=== PATIENT | female | born 1935 | race Two or more races ===

== ENCOUNTER 2017-06-10 16:55 | Inpatient (IN) | payer OTHER ==
[~2017-06-10] VITALS: Ht 152.4 cm; Wt 51.2 kg
[2017-06-10 18:05] LABS: BASOPHIL % 0 % (0-2); PLATELET COUNT 124 x10^3mcL (130-400); RED CELL DISTRIBUTION WIDTH 16.4 % (11.5-14.5)
[2017-06-10 18:06] LABS: CALCIUM 8.8 mg/dL (8.5-10.1); CARBON DIOXIDE 26.8 mmol/L (21-32); CHLORIDE SERUM 101 mmol/L (98-107); CREATININE SERUM 0.9 mg/dL (0.6-1.0); GLUCOSE SERUM 172 mg/dL (74-106); POTASSIUM SERUM 3.7 mmol/L (3.5-5.1); SODIUM SERUM 137 mmol/L (136-145)
[2017-06-10 18:10] LABS: ALBUMIN 4.1 g/dL (3.4-5.0); ALKALINE PHOSPHATASE 103 U/L (46-116); ALT/SGPT 39 U/L (14-59); AST/SGOT 44 U/L (15-37); BILIRUBIN TOTAL 0.6 mg/dL (0.20-1.00)
[2017-06-10 18:11] LABS: TOTAL PROTEIN, SERUM 8.6 g/dL (6.4-8.2)
[2017-06-10] MEDS ORDERED: TOPROL XL50 MG PO (19:17)
[2017-06-10] MEDS ORDERED: LIPI10 PO (19:17)
[2017-06-10] MEDS ORDERED: LOSARTAN POTASS25 M1 PO (19:17)
[2017-06-10] MEDS ORDERED: ELIQUIS2.5 MG PO (19:18)
[2017-06-10 20:26] VITALS: BP 146/78
[2017-06-10 22:14] LABS: MAGNESIUM 1.8 mg/dL (1.8-2.4); PHOSPHOROUS 3.7 mg/dL (2.5-4.9)
[2017-06-10 22:15] LABS: CHOLESTEROL/HDL RATIO 2.5
[2017-06-10 22:16] LABS: FREE T4 1.2 ng/dL (0.76-1.46); FREE THYROXINE INDEX 3.2 ug/dL (1.4-4.5); T4(THYROXINE) 9.3 ug/dL (4.7-13.3)
[2017-06-10 22:19] LABS: T3 TOTAL 0.87 ng/mL
[2017-06-10 23:52] VITALS: BP 146/78
[2017-06-11 01:06] LABS: UA SPECIFIC GRAVITY >=1.030 (1.005-1.035); microscopic required? YES; urine erythrocyte NEGATIVE (NEGATIVE)
[2017-06-11 01:14] LABS: AMPHETAMINE QUAL UR NONE DETECTED (NEG <=1000)
[2017-06-11 04:58] VITALS: BP 151/92
[2017-06-11 06:59] LABS: BASOPHIL % 0.3 % (0-2)
[2017-06-11 07:07] LABS: CALCIUM 8.9 mg/dL (8.5-10.1); CARBON DIOXIDE 24.5 mmol/L (21-32); CHLORIDE SERUM 102 mmol/L (98-107); GLUCOSE SERUM 125 mg/dL (74-106); POTASSIUM SERUM 3.6 mmol/L (3.5-5.1); SODIUM SERUM 138 mmol/L (136-145)
[2017-06-11 07:16] LABS: PLATELET COUNT 123 x10^3mcL (130-400); RED CELL DISTRIBUTION WIDTH 16.2 % (11.5-14.5)
[2017-06-11 09:55] VITALS: BP 129/75
[2017-06-11 13:13] VITALS: BP 128/85
[2017-06-11 17:30] VITALS: BP 118/94
[2017-06-11 21:12] VITALS: BP 143/78
[2017-06-12 05:11] VITALS: BP 148/87
[2017-06-12 08:02] LABS: PLATELET COUNT 107 x10^3mcL (130-400); RED CELL DISTRIBUTION WIDTH 15.1 % (11.5-14.5)
[2017-06-12 08:21] LABS: CALCIUM 8.3 mg/dL (8.5-10.1); CARBON DIOXIDE 25.9 mmol/L (21-32); CHLORIDE SERUM 102 mmol/L (98-107); GLUCOSE SERUM 116 mg/dL (74-106); PHOSPHOROUS 3.4 mg/dL (2.5-4.9); POTASSIUM SERUM 4.1 mmol/L (3.5-5.1); SODIUM SERUM 136 mmol/L (136-145)
[2017-06-12 09:32] VITALS: BP 133/75
[2017-06-12 13:25] VITALS: BP 133/87
[2017-06-12 16:36] VITALS: BP 127/84
[2017-06-12 21:12] VITALS: BP 149/91
[2017-06-13 05:45] VITALS: BP 151/84
[2017-06-13 06:41] LABS: BASOPHIL % 0.5 % (0-2)
[2017-06-13 06:51] LABS: PLATELET COUNT 111 x10^3mcL (130-400)
[2017-06-13 07:07] LABS: CALCIUM 8.5 mg/dL (8.5-10.1); CARBON DIOXIDE 23.8 mmol/L (21-32); CHLORIDE SERUM 104 mmol/L (98-107); CREATININE SERUM 0.7 mg/dL (0.6-1.0); GLUCOSE SERUM 106 mg/dL (74-106); MAGNESIUM 2.2 mg/dL (1.8-2.4); PHOSPHOROUS 2.9 mg/dL (2.5-4.9); POTASSIUM SERUM 4.3 mmol/L (3.5-5.1); SODIUM SERUM 136 mmol/L (136-145)
[2017-06-13 10:15] VITALS: BP 158/104
[2017-06-13 17:12] VITALS: BP 126/77
[2017-06-13 21:24] VITALS: BP 139/94
[2017-06-14 06:18] VITALS: BP 140/84
[2017-06-14 07:29] LABS: PLATELET COUNT 153 x10^3mcL (130-400)
[2017-06-14 07:32] LABS: CALCIUM 8.5 mg/dL (8.5-10.1); CARBON DIOXIDE 22.1 mmol/L (21-32); CHLORIDE SERUM 104 mmol/L (98-107); CREATININE SERUM 0.7 mg/dL (0.6-1.0); GLUCOSE SERUM 137 mg/dL (74-106); MAGNESIUM 2.2 mg/dL (1.8-2.4); PHOSPHOROUS 3.8 mg/dL (2.5-4.9); POTASSIUM SERUM 4.3 mmol/L (3.5-5.1); SODIUM SERUM 136 mmol/L (136-145)
[2017-06-14 08:22] LABS: RED CELL DISTRIBUTION WIDTH 16.2 % (11.5-14.5)
[2017-06-14 10:24] VITALS: BP 131/87
[2017-06-14 13:47] VITALS: BP 124/85
[2017-06-14 17:55] VITALS: BP 125/82
[2017-06-14 20:00] VITALS: BP 128/76
[2017-06-15] VITALS (7 sets, daily range): BP systolic 138–141; BP diastolic 58–94; Ht 152.4 cm; Wt 51.2 kg
[2017-06-15 07:02] LABS: BASOPHIL % 0.3 % (0-2); PLATELET COUNT 150 x10^3mcL (130-400); RED CELL DISTRIBUTION WIDTH 16.4 % (11.5-14.5)
[2017-06-15 07:06] LABS: CALCIUM 8.5 mg/dL (8.5-10.1); CHLORIDE SERUM 106 mmol/L (98-107); CREATININE SERUM 0.8 mg/dL (0.6-1.0); GLUCOSE SERUM 129 mg/dL (74-106); POTASSIUM SERUM 4.5 mmol/L (3.5-5.1); SODIUM SERUM 138 mmol/L (136-145)
[2017-06-16 04:51] VITALS: BP 155/85
[2017-06-16 06:34] LABS: BASOPHIL % 0.4 % (0-2); PLATELET COUNT 163 x10^3mcL (130-400)
[2017-06-16 06:42] LABS: CALCIUM 8.7 mg/dL (8.5-10.1); CHLORIDE SERUM 105 mmol/L (98-107); CREATININE SERUM 0.8 mg/dL (0.6-1.0); GLUCOSE SERUM 99 mg/dL (74-106); MAGNESIUM 1.8 mg/dL (1.8-2.4); POTASSIUM SERUM 4.1 mmol/L (3.5-5.1); SODIUM SERUM 139 mmol/L (136-145)
[2017-06-16 06:55] LABS: RED CELL DISTRIBUTION WIDTH 16.3 % (11.5-14.5)
[2017-06-16 09:30] VITALS: BP 141/81
[2017-06-16 13:36] VITALS: BP 139/80
[2017-06-16 18:02] VITALS: BP 132/77
[2017-06-16 20:58] VITALS: BP 121/68
[2017-06-17 05:52] VITALS: BP 133/94
[2017-06-17 07:49] LABS: CALCIUM 8.6 mg/dL (8.5-10.1); CARBON DIOXIDE 23.1 mmol/L (21-32); CHLORIDE SERUM 104 mmol/L (98-107); CREATININE SERUM 0.8 mg/dL (0.6-1.0); GLUCOSE SERUM 125 mg/dL (74-106); PHOSPHOROUS 4.2 mg/dL (2.5-4.9); POTASSIUM SERUM 4.2 mmol/L (3.5-5.1); SODIUM SERUM 136 mmol/L (136-145)
[2017-06-17 08:18] LABS: BASOPHIL % 0.2 % (0-2); PLATELET COUNT 167 x10^3mcL (130-400)
[2017-06-17 08:40] LABS: RED CELL DISTRIBUTION WIDTH 16.5 % (11.5-14.5)
[2017-06-17 10:03] VITALS: BP 138/82
[2017-06-17 13:05] VITALS: BP 115/72
[2017-06-17 16:42] VITALS: BP 134/72
[2017-06-17 16:58] VITALS: BP 134/72
[2017-06-17 21:29] VITALS: BP 133/76
[2017-06-18 06:01] VITALS: BP 144/96
[2017-06-18 08:00] VITALS: BP 138/85
[2017-06-18 08:30] LABS: CALCIUM 8.3 mg/dL (8.5-10.1); CARBON DIOXIDE 23.2 mmol/L (21-32); CHLORIDE SERUM 103 mmol/L (98-107); CREATININE SERUM 0.8 mg/dL (0.6-1.0); GLUCOSE SERUM 116 mg/dL (74-106); PHOSPHOROUS 4.6 mg/dL (2.5-4.9); POTASSIUM SERUM 4.4 mmol/L (3.5-5.1); SODIUM SERUM 135 mmol/L (136-145)
[2017-06-18 08:35] LABS: BASOPHIL % 0.3 % (0-2); PLATELET COUNT 188 x10^3mcL (130-400)
[2017-06-18 08:38] LABS: RED CELL DISTRIBUTION WIDTH 16.3 % (11.5-14.5)
[2017-06-18 12:56] VITALS: BP 135/84
[2017-06-18 17:51] VITALS: BP 137/86
[2017-06-18 22:26] VITALS: BP 144/98
[2017-06-19 06:24] VITALS: BP 132/62
[2017-06-19 07:40] LABS: BASOPHIL % 0.1 % (0-2); PLATELET COUNT 217 x10^3mcL (130-400)
[2017-06-19 07:43] LABS: RED CELL DISTRIBUTION WIDTH 16.3 % (11.5-14.5)
[2017-06-19 08:13] LABS: CALCIUM 8.8 mg/dL (8.5-10.1); CARBON DIOXIDE 25.8 mmol/L (21-32); CHLORIDE SERUM 101 mmol/L (98-107); CREATININE SERUM 0.9 mg/dL (0.6-1.0); PHOSPHOROUS 4.2 mg/dL (2.5-4.9); POTASSIUM SERUM 4.3 mmol/L (3.5-5.1); SODIUM SERUM 137 mmol/L (136-145)
[2017-06-19 08:36] LABS: GLUCOSE SERUM 97 mg/dL (74-106)
[2017-06-19 09:50] VITALS: BP 131/76
[2017-06-19] MEDS ORDERED: LEVAQUIN750 MG PO (11:05)
[2017-06-19] MEDS ORDERED: CLINDAMYCIN HC300 MG PO (11:09)
[2017-06-19] MEDS ORDERED: LAC PO (11:10)
[2017-06-19] MEDS ORDERED: NORCO1 TA1 PO (11:11)
[2017-06-19 14:36] VITALS: BP 149/93
[2017-06-19 15:57] VITALS: BP 149/93
[2017-06-19 17:13] VITALS: BP 149/93
== END 2017-06-19 23:00 | DRG 308 ==
LOC: ED 16:55 → DU 19:05
PROVIDERS: Emergency Medicine; Family Medicine; Family Medicine Sports Medicine; Neuromusculoskeletal Medicine, Sports Medicine
PROC: 0QS704Z Reposition Left Upper Femur with Internal Fixation Device, Open Approach (ICD-10-PCS; principal; 2017-06-13 13:30)
DX: S72.012A Unspecified intracapsular fracture of left femur, initial encounter for closed fracture (principal); N17.0 Acute kidney failure with tubular necrosis; J69.0 Pneumonitis due to inhalation of food and vomit; I50.43 Acute on chronic combined systolic (congestive) and diastolic (congestive) heart failure; I48.91 Unspecified atrial fibrillation; I42.0 Dilated cardiomyopathy; E86.0 Dehydration; E78.5 Hyperlipidemia, unspecified; J98.11 Atelectasis; J06.9 Acute upper respiratory infection, unspecified; R80.9 Proteinuria, unspecified; I11.0 Hypertensive heart disease with heart failure; Z68.22 Body mass index [BMI] 22.0-22.9, adult; W18.39XA Other fall on same level, initial encounter; Y93.89 Activity, other specified; Y92.531 Health care provider office as the place of occurrence of the external cause; Z88.0 Allergy status to penicillin; R73.03 Prediabetes; M72.2 Plantar fascial fibromatosis
CPT/HCPCS: 83880; 84439; 94150; 97110-GP; 97116-GP; 97530-GP; C1713; J1644; J1885; J1940; J1956; J2405; J2704; J3010; J3490; J7030; J7620; Q0092